=== PATIENT | female | born 2000 | race Caucasian/White ===

== ENCOUNTER 2019-12-09 13:10 | Emergency (ER) | payer OTHER ==
[2019-12-09 14:40] LABS: ABS Lymphocytes 0.5 10^3/ul (1.0-4.8); ABS Monocytes 0.5 10^3/ul (0-0.8); ABS Neutrophils 5.6 10^3/ul (1.5-7.7); Eosinophil % 0.1 %; Hematocrit 45 % (35-47); Hemoglobin 14.9 g/dL (12.0-16.0); Lymphocyte % 7.9 %; Mean Corpuscular HGB Conc 33 g/dL (31-36); Mean Corpuscular Hemoglobin 28 pg (27-31); Mean Corpuscular Volume 84 fL (80-97); Mean Platelet Volume 10.1 fL (7.4-10.4); Nucleated Red Blood Cells % 0.1; Platelet Count 175 10^3/uL (150-450); Red Blood Count 5.31 10^6 /uL (3.70-4.87); Red Cell Distribution Width 14 % (10-15); White Blood Count 6.6 10^3/uL (3.5-10.8)
[2019-12-09 14:54] LABS: ALT 14 U/L (7-52); AST 20 U/L (13-39); Albumin 4.6 g/dL (3.2-5.2); Albumin/Globulin Ratio 1.9 (1-3); Alkaline Phosphatase 64 U/L (34-104); Anion Gap 6 mmol/L (2-11); Blood Urea Nitrogen 17 mg/dL (6-24); CO2 Carbon Dioxide 27 mmol/L (22-32); Calcium 9.4 mg/dL (8.6-10.3); Chloride 102 mmol/L (101-111); EGFR African American 103.2 (>60); EGFR Non-African American 85.3 (>60); Globulin 2.4 g/dL (2-4); Glucose 104 mg/dL (70-100); Potassium 4.2 mmol/L (3.5-5.0); Sodium 135 mmol/L (135-145)
[2019-12-09 15:01] LABS: HCG Pregnancy < 0.60 mIU/mL
[2019-12-09] MEDS ORDERED: NS 0.9% 1000 ML** 1,000 ML IV ONE (15:20)
[2019-12-09] MEDS ORDERED: Ondansetron INJ* 2 MG/ML VIAL IV ONE (15:20)
[2019-12-09 16:09] VITALS: BP 144/90
--- NOTE | 2019-12-09 16:16 | ED ---
GI/ HPI - HPI Summary HPI Summary: 19 y/o female presented to [facility] for suspected food poisoning yesterday. Pt ate [place] food at a food court after a track meet at [place] and has been vomiting with abd pain. Denies diarrhea and fever. Decreased oral intake due to vomiting ingested food and fluid. - History of Current Complaint Chief Complaint: EDNauseaVomitDiarrh Time Seen by Provider: 12/09/19 15:19 Stated Complaint: POSS FLU PER PT MOM Hx Obtained From: Patient Onset/Duration: Started Days Ago, Still Present Timing: Lasting Days Current Severity: None Pain Intensity: 0 Associated Signs and Symptoms: Positive: Vomiting, Abdominal Pain, Other: - decreased oral intake. Negative: Diarrhea, Fever - Allergy/Home Medications Home Medications: Home Medications Ondansetron ODT TAB* [Zofran 4 MG Odt TAB*] 4 mg PO Q8H PRN #12 tab.odt [Rx] PMH/Surg Hx/FS Hx/Imm Hx Sensory History: Denies: Hx Legally Blind, Hx Deafness Opthamlomology History: Denies: Hx Legally Blind EENT History: Denies: Hx Deafness Infectious Disease History: No Infectious Disease History: Denies: Traveled Outside the [place] in Last 30 Days - Family History Known Family History: Positive: Cardiac Disease - father, Diabetes - father - Social History Alcohol Use: Rare Substance Use Type: Reports: None Smoking Status (MU): Never Smoked Tobacco Review of Systems Negative: Fever Positive: Abdominal Pain, Vomiting, Other - decreased oral intake. Negative: Diarrhea All Other Systems Reviewed And Are Negative: Yes Physical Exam - Summary Physical Exam Summary: Constitutional: Well-developed, Well-nourished, Alert. (-) Distressed Skin: Warm, Dry HENT: Normocephalic; Atraumatic. Mucosa slightly dry Eyes: Conjunctiva normal Neck: Musculoskeletal ROM normal neck. (-) JVD, (-) Stridor, (-) Tracheal deviation Cardio: Rhythm regular, rate normal, Heart sounds normal; Intact distal pulses; Radial pulses are 2+ and symmetric. (-) Murmur Pulmonary/Chest wall: Effort normal. (-) Respiratory distress, (-) Wheezes, (-) Rales Abd: Soft, (-) tenderness, (-) Distension, (-) Guarding, (-) Rebound Musculoskeletal: (-) Edema, Good pulses bilaterally in radius, No calf tenderness, No venous cords, No pain with dorsiflexion of foot. Lymph: (-) Cervical adenopathy Neuro: Alert, Oriented x3 Psych: Mood and affect Normal Triage Information Reviewed: Yes Vital Signs On Initial Exam: Initial Vitals Temp Pulse Resp BP Pulse Ox 97.4 F 114 16 124/93 99 12/09/19 13:10 12/09/19 13:10 12/09/19 13:10 12/09/19 13:10 12/09/19 13:10 Vital Signs Reviewed: Yes Procedures - Sedation Patient Received Moderate/Deep Sedation with Procedure: No Diagnostics - Vital Signs Vital Signs Temp Pulse Resp BP Pulse Ox 12/09/19 16:09 97.9 F 95 18 144/90 99 12/09/19 13:10 97.4 F 114 16 124/93 99 - Laboratory Lab Results: Lab Results 12/09/19 12/09/19 Range/Units 14:15 14:15 WBC 6.6 (3.5-10.8) 10^3/uL RBC 5.31 H (3.70-4.87) 10^6 /uL Hgb 14.9 (12.0-16.0) g/dL Hct 45 (35-47) % MCV 84 (80-97) fL MCH 28 (27-31) pg MCHC 33 (31-36) g/dL RDW 14 (10-15) % Plt Count 175 (150-450) 10^3/uL MPV 10.1 (7.4-10.4) fL Neut % (Auto) 84.1 % Lymph % (Auto) 7.9 % [place] % (Auto) 7.7 % Eos % (Auto) 0.1 % Baso % (Auto) 0.2 % Absolute Neuts (auto) 5.6 (1.5-7.7) 10^3/ul Absolute Lymphs (auto) 0.5 L (1.0-4.8) 10^3/ul Absolute Monos (auto) 0.5 (0-0.8) 10^3/ul Absolute Eos (auto) 0.0 (0-0.6) 10^3/ul Absolute Basos (auto) 0.0 (0-0.2) 10^3/ul Absolute Nucleated RBC 0.0 10^3/ul Nucleated RBC % 0.1 Sodium 135 (135-145) mmol/L Potassium 4.2 (3.5-5.0) mmol/L Chloride 102 (101-111) mmol/L Carbon Dioxide 27 (22-32) mmol/L Anion Gap 6 (2-11) mmol/L BUN 17 (6-24) mg/dL Creatinine 0.85 (0.51-0.95) mg/dL Est GFR ( Amer) 103.2 (>60) Est GFR (Non-Af Amer) 85.3 (>60) BUN/Creatinine Ratio 20.0 (8-20) Glucose 104 H (70-100) mg/dL Calcium 9.4 (8.6-10.3) mg/dL Total Bilirubin 2.20 H (0.2-1.0) mg/dL AST 20 (13-39) U/L ALT 14 (7-52) U/L Alkaline Phosphatase 64 (34-104) U/L Total Protein 7.0 (6.4-8.9) g/dL Albumin 4.6 (3.2-5.2) g/dL Globulin 2.4 (2-4) g/dL Albumin/Globulin Ratio 1.9 (1-3) Beta HCG, Quant < 0.60 mIU/mL Result Diagrams: 12/09/19 14:15 12/09/19 14:15 Lab Statement: Any lab studies that have been ordered have been reviewed, and results considered in the medical decision making process. Re-Evaluation - Re-Evaluation First Eval Re-Evaluation Time: 16:13 Comment: Pt is tolerating PO GIGU Course/Dx - Course Course Of Treatment: Patient is here with vomiting and diarrhea eating [place] food. Patient has multiple friends who had similar symptoms after eating the same food. Patient had no abdominal tenderness or complaints of pain on exam today. Patient had blood performed which was grossly unremarkable outside of an elevated bilirubin. Patient is given IV fluids, IV Zofran and was able to tolerate by mouth. Patient will follow up with her [facility] this week to have her bilirubin level rechecked. - Diagnoses Provider Diagnoses: Vomiting, Diarrhea Discharge ED - Sign-Out/Discharge Documenting (check all that apply): Patient Departure - dc - Discharge Plan Condition: Improved Disposition: HOME Prescriptions: Ondansetron ODT TAB* [Zofran 4 MG Odt TAB*] 4 mg PO Q8H PRN #12 tab.odt PRN Reason: Vomiting Patient Education Materials: Dehydration (ED), Gastroenteritis (ED) Referrals: No Primary Care Phys,NOPCP [Primary Care Provider] - Additional Instructions: Please take your medications as prescribed Please stay hydrated with Pedialyte Please return to the emergency department if you have severe abdominal pain, you cannot tolerate any fluids for 12 hours, you do not urinate for 12 hours, yellowing of your skin, any other concerning symptoms Please follow up with [facility] in 3-5 days to have your bilirubin level rechecked as it was elevated - Billing Disposition and Condition Condition: IMPROVED Disposition: Home - Attestation Statements Document Initiated by Yuval: Yes Documenting Scribe: Maikel uSarez Provider For Whom Yuval is Documenting (Include Credential): Vance Mitchell MD Scribe Attestation: Maikel Bledsoe, scribed for Vance Mitchell MD on 12/09/19 at 1827. Scribe Documentation Reviewed: Yes Provider Attestation: The documentation as recorded by the Maikel stone accurately reflects the service I personally performed and the decisions made by , Vance Mitchell MD Status of Scribe Document: Viewed
== END 2019-12-09 16:26 | disposition home or self-care (01) ==
LOC: ED 13:10
DX: R11.10 Vomiting, unspecified (principal); R19.7 Diarrhea, unspecified
CPT/HCPCS: 36415; 80053; 84702; 85025; 96361; 96374; 99282; J2405